=== PATIENT | male | born 1990 | race Caucasian/White ===

== ENCOUNTER 2017-08-08 19:00 | Emergency (ER) | payer MEDICAID ==
[~2017-08-08] VITALS: Ht 177.8 cm; Wt 84.0 kg
[2017-08-08 22:45] VITALS: BP 148/82
== END 2017-08-08 22:47 | disposition home or self-care (01) ==
LOC: ER 21:32
DX: L08.9 Local infection of the skin and subcutaneous tissue, unspecified (principal); M79.671 Pain in right foot; F17.200 Nicotine dependence, unspecified, uncomplicated
CPT/HCPCS: 73620; 99284; Z7610